=== PATIENT | female | born 1960 | race Caucasian/White ===

== ENCOUNTER → 2023-06-06 06:13 | Outpatient (REF) | payer BC, SELFPAY ==
[2023-06-06 10:43] LABS: ALT (SGPT) 29 U/L (0-35); AST (SGOT) 31 U/L (14-36); Albumin 4.3 g/dl (3.5-5.0); Alkaline Phosphatase 83 U/L (38-126); Blood Urea Nitrogen 26 mg/dl (7-17); Carbon Dioxide 26 mmol/L (22-30); Chloride 103 mmol/L (98-107); Glucose 116 mg/dl (70-99); HDL Cholesterol 72 mg/dl; LDL Cholesterol, Calculated 79 mg/dl; Potassium 4.2 mmol/L (3.5-5.1); Sodium 140 mmol/L (135-145); Total Bilirubin 0.7 mg/dl (0.2-1.3); Total Cholesterol 168 mg/dl (50-199); Triglyceride 89 mg/dl (10-149); Very Low Density Lipoprotein 17 mg/dl (0-30); eGFR > 60.00
[2023-06-06 10:58] LABS: Vitamin D, 25-OH*** 71.2 ng/mL (30-80)
== END ==
LOC: HWLAB 06:13
PROVIDERS: ATTENDING PHYSICIAN Internal Medicine Rheumatology; FAMILY PHYSICIAN Internal Medicine; OTHER PHYSICIAN Obstetrics & Gynecology Gynecology; REFERRING PHYSICIAN Internal Medicine Cardiovascular Disease
DX: M11.20 Other chondrocalcinosis, unspecified site (principal); M15.9 Polyosteoarthritis, unspecified; E55.9 Vitamin D deficiency, unspecified; I65.23 Occlusion and stenosis of bilateral carotid arteries; E78.5 Hyperlipidemia, unspecified
CPT/HCPCS: 36415; 80053; 80061; 82306

== ENCOUNTER → 2023-07-07 06:42 | Outpatient (REF) | payer BC, SELFPAY | LOC: HWWDC 06:42 | PROVIDERS: ATTENDING PHYSICIAN Obstetrics & Gynecology Gynecology; FAMILY PHYSICIAN Internal Medicine | DX: Z12.31 Encounter for screening mammogram for malignant neoplasm of breast (principal) | CPT/HCPCS: 77063; 77067 ==

== ENCOUNTER → 2023-07-16 07:15 | Outpatient (REF) | payer BC, SELFPAY | LOC: RAD 07:15 | PROVIDERS: ATTENDING PHYSICIAN Internal Medicine Cardiovascular Disease; FAMILY PHYSICIAN Internal Medicine | DX: I65.23 Occlusion and stenosis of bilateral carotid arteries (principal); E78.5 Hyperlipidemia, unspecified | CPT/HCPCS: 93880 ==

== ENCOUNTER → 2023-08-29 06:23 | Outpatient (REF) | payer BC, SELFPAY ==
[2023-08-29 10:16] LABS: ALT (SGPT) 21 U/L (0-35); AST (SGOT) 27 U/L (14-36); Albumin 4.4 g/dl (3.5-5.0); Alkaline Phosphatase 79 U/L (38-126); Blood Urea Nitrogen 19 mg/dl (7-17); Carbon Dioxide 25 mmol/L (22-30); Chloride 108 mmol/L (98-107); Glucose 115 mg/dl (70-99); Potassium 4.2 mmol/L (3.5-5.1); Sodium 141 mmol/L (135-145); Total Bilirubin 0.5 mg/dl (0.2-1.3); eGFR > 60.00
== END ==
LOC: HWLAB 06:23
PROVIDERS: ATTENDING PHYSICIAN Internal Medicine Rheumatology; FAMILY PHYSICIAN Internal Medicine
DX: M11.20 Other chondrocalcinosis, unspecified site (principal); M15.9 Polyosteoarthritis, unspecified
CPT/HCPCS: 36415; 80053

== ENCOUNTER → 2024-02-04 06:25 | Outpatient (REF) | payer BC, SELFPAY ==
[2024-02-04 09:19] LABS: % Eosinophils 3.6 % (0-6); % Immature Granulocytes 0.2 % (0-0.5); % Lymphocytes 41.9 % (20.5-51.1); % Monocytes 8.5 % (1.7-9.3); % Neutrophils 44.8 % (42.2-75.2); Absolute Basophils 0.1 10^3/uL (0-0.2); Absolute Eosinophils 0.2 10^3/uL (0-0.7); Absolute Lymphocytes 2.4 10^3/uL (1.2-3.4); Absolute Monocytes 0.5 10^3/uL (0.1-0.6); Absolute Neutrophils 2.6 10^3/uL (1.4-6.5); Hematocrit 40.5 % (37.0-47.0); Hemoglobin 13.5 g/dL (12.0-16.0); Mean Corp Hgb Conc. 33.3 g/dL (33.0-37.0); Mean Corpuscular Hgb 29.9 pg (27.0-31.0); Mean Corpuscular Volume 89.8 fL (81.0-99.0); Mean Platelet Volume 9.6 fL (7.4-10.4); Nucleated Red Blood Cells % 0 %; Platelet Count 344 10^3/uL (130-400); Red Blood Cell Count 4.51 10^6/uL (4.20-5.40); Red Cell Dist. Width 13.3 % (11.5-14.5); White Blood Cell Count 5.8 10^3/uL (4.8-10.8)
[2024-02-04 09:43] LABS: Calcium 10.1 mg/dl (8.4-10.2)
[2024-02-04 09:46] LABS: Vitamin D, 25-OH*** 60.5 ng/mL (30-80)
[2024-02-04 12:46] LABS: tTG IgA Antibody 5.1 EU/ml (0-19); tTG IgG Antibody 8.8 EU/ml (0-19)
[2024-02-05 07:03] LABS: IgA 232 mg/dl (70-400)
[2024-02-06 17:42] LABS: Endomysial IgA Antibody Titer <1:10 (<1:10)
[2024-02-07 09:09] LABS: Intact PTH 46.2 pg/ml (13.6-85.8)
== END ==
LOC: HWRAD 06:25
PROVIDERS: ATTENDING PHYSICIAN Internal Medicine Rheumatology; FAMILY PHYSICIAN Internal Medicine
DX: M85.80 Other specified disorders of bone density and structure, unspecified site (principal); E55.9 Vitamin D deficiency, unspecified; M06.4 Inflammatory polyarthropathy; M11.20 Other chondrocalcinosis, unspecified site
CPT/HCPCS: 36415; 77080; 82306; 82784; 83516; 83970; 84155; 84165; 84443; 85025; 86231

== ENCOUNTER → 2024-03-12 06:11 | Outpatient (REF) | payer BC, SELFPAY ==
[2024-03-12 09:21] LABS: ALT (SGPT) 28 U/L (0-35); AST (SGOT) 34 U/L (14-36); Albumin 4.5 g/dl (3.5-5.0); Alkaline Phosphatase 69 U/L (38-126); Blood Urea Nitrogen 14 mg/dl (7-17); Calcium 9.8 mg/dl (8.4-10.2); Carbon Dioxide 25 mmol/L (22-30); Chloride 107 mmol/L (98-107); Glucose 103 mg/dl (70-99); Potassium 4.1 mmol/L (3.5-5.1); Sodium 146 mmol/L (135-145); Total Bilirubin 0.5 mg/dl (0.2-1.3); Total Protein 7.1 g/dl (6.3-8.2); eGFR > 60.00
== END ==
LOC: HWLAB 06:11
PROVIDERS: ATTENDING PHYSICIAN Internal Medicine Rheumatology; FAMILY PHYSICIAN Internal Medicine
DX: M11.20 Other chondrocalcinosis, unspecified site (principal); Z79.899 Other long term (current) drug therapy
CPT/HCPCS: 36415; 80053

== ENCOUNTER → 2024-04-26 11:48 | Outpatient (REF) | payer BC, SELFPAY | LOC: HWRAD 11:48 | PROVIDERS: ATTENDING PHYSICIAN Nurse Practitioner Adult Health | DX: R05.1 Acute cough (principal) | CPT/HCPCS: 71046 ==

== ENCOUNTER → 2024-06-09 10:26 | Outpatient (REF) | payer BC, SELFPAY ==
[2024-06-09 13:24] LABS: ALT (SGPT) 37 U/L (0-35); AST (SGOT) 32 U/L (14-36); HDL Cholesterol 86 mg/dl; LDL Cholesterol, Calculated 86 mg/dl; Total Cholesterol 196 mg/dl (50-199); Triglyceride 123 mg/dl (10-149); Very Low Density Lipoprotein 24 mg/dl (0-30)
== END ==
LOC: HWRCS 10:26
PROVIDERS: ATTENDING PHYSICIAN Internal Medicine Cardiovascular Disease; FAMILY PHYSICIAN Nurse Practitioner Family
DX: R07.89 Other chest pain (principal); J10.1 Influenza due to other identified influenza virus with other respiratory manifestations; I65.23 Occlusion and stenosis of bilateral carotid arteries; E78.5 Hyperlipidemia, unspecified
CPT/HCPCS: 36415; 78452; 80061; 84450; 84460; 93017; A9500

== ENCOUNTER → 2024-06-17 07:08 | Outpatient (REF) | payer BC, SELFPAY | LOC: HWRCS 07:08 | PROVIDERS: ATTENDING PHYSICIAN Internal Medicine Cardiovascular Disease; FAMILY PHYSICIAN Nurse Practitioner Family | DX: R07.89 Other chest pain (principal); J10.1 Influenza due to other identified influenza virus with other respiratory manifestations | CPT/HCPCS: 93306 ==

== ENCOUNTER → 2024-07-07 06:31 | Outpatient (REF) | payer BC, SELFPAY | LOC: HWWDC 06:31 | PROVIDERS: ATTENDING PHYSICIAN Obstetrics & Gynecology Gynecology; FAMILY PHYSICIAN Nurse Practitioner Family | DX: Z12.31 Encounter for screening mammogram for malignant neoplasm of breast (principal) | CPT/HCPCS: 77063; 77067 ==

== ENCOUNTER → 2024-09-03 06:14 | Outpatient (REF) | payer BC, SELFPAY ==
[2024-09-03 09:58] LABS: % Basophils 0.9 % (0-2); % Eosinophils 4.1 % (0-6); % Immature Granulocytes 0.2 % (0-0.5); % Lymphocytes 37.6 % (20.5-51.1); % Monocytes 8.2 % (1.7-9.3); Absolute Basophils 0.1 10^3/uL (0-0.2); Absolute Eosinophils 0.2 10^3/uL (0-0.7); Absolute Lymphocytes 2.1 10^3/uL (1.2-3.4); Absolute Monocytes 0.5 10^3/uL (0.1-0.6); Absolute Neutrophils 2.8 10^3/uL (1.4-6.5); Hematocrit 38.9 % (37.0-47.0); Hemoglobin 13.1 g/dL (12.0-16.0); Mean Corp Hgb Conc. 33.7 g/dL (33.0-37.0); Mean Corpuscular Hgb 31.2 pg (27.0-31.0); Mean Corpuscular Volume 92.6 fL (81.0-99.0); Mean Platelet Volume 9.8 fL (7.4-10.4); Nucleated Red Blood Cells % 0 %; Platelet Count 309 10^3/uL (130-400); Red Cell Dist. Width 12.8 % (11.5-14.5); White Blood Cell Count 5.6 10^3/uL (4.8-10.8)
[2024-09-03 10:25] LABS: ALT (SGPT) 20 U/L (0-35); AST (SGOT) 26 U/L (14-36); Albumin 4.4 g/dl (3.5-5.0); Alkaline Phosphatase 61 U/L (38-126); Blood Urea Nitrogen 17 mg/dl (7-17); Calcium 9.6 mg/dl (8.4-10.2); Carbon Dioxide 28 mmol/L (22-30); Chloride 107 mmol/L (98-107); Glucose 103 mg/dl (70-99); Potassium 3.9 mmol/L (3.5-5.1); Sodium 143 mmol/L (135-145); Total Bilirubin 0.8 mg/dl (0.2-1.3); Total Protein 6.7 g/dl (6.3-8.2); eGFR > 60.00
== END ==
LOC: HWLAB 06:14
PROVIDERS: ATTENDING PHYSICIAN Internal Medicine Rheumatology; FAMILY PHYSICIAN Internal Medicine
DX: M11.20 Other chondrocalcinosis, unspecified site (principal); Z79.899 Other long term (current) drug therapy
CPT/HCPCS: 36415; 80053; 85025

== ENCOUNTER → 2025-03-07 06:06 | Outpatient (REF) | payer BC, SELFPAY ==
[2025-03-07 09:51] LABS: Hematocrit 42.6 % (37.0-47.0); Hemoglobin 13.6 g/dL (12.0-16.0); Mean Corp Hgb Conc. 31.9 g/dL (33.0-37.0); Mean Corpuscular Volume 94.5 fL (81.0-99.0); Nucleated Red Blood Cells % 0 %; Platelet Count 338 10^3/uL (130-400); Red Cell Dist. Width 12.3 % (11.5-14.5)
[2025-03-07 10:26] LABS: ALT (SGPT) 21 U/L (0-35); AST (SGOT) 25 U/L (14-36); Albumin 4.6 g/dl (3.5-5.0); Alkaline Phosphatase 64 U/L (38-126); Blood Urea Nitrogen 19 mg/dl (7-17); Calcium 9.9 mg/dl (8.4-10.2); Carbon Dioxide 26 mmol/L (22-30); Chloride 107 mmol/L (98-107); Glucose 104 mg/dl (70-99); Potassium 4.1 mmol/L (3.5-5.1); Sodium 139 mmol/L (135-145); Total Protein 7.5 g/dl (6.3-8.2); Very Low Density Lipoprotein 26 mg/dl (0-30); eGFR > 60.00
[2025-03-07 10:28] LABS: HDL Cholesterol 63 mg/dl; LDL Cholesterol, Calculated 70 mg/dl
== END ==
LOC: HWLAB 06:06
PROVIDERS: ATTENDING PHYSICIAN Internal Medicine Rheumatology; FAMILY PHYSICIAN Internal Medicine; REFERRING PHYSICIAN Internal Medicine Cardiovascular Disease
DX: M11.20 Other chondrocalcinosis, unspecified site (principal); Z79.899 Other long term (current) drug therapy; I65.23 Occlusion and stenosis of bilateral carotid arteries
CPT/HCPCS: 36415; 80053; 80061; 85025